=== PATIENT | male | born 1990 ===

== ENCOUNTER 2018-05-26 00:40 | Emergency (ER) | payer SELFPAY ==
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
[2018-05-26 03:50] VITALS: RESP 14
[2018-05-26 05:55] VITALS: BP 130/78; PULSE 81; TEMP 98.5
[2018-05-26 06:52] VITALS: O2SAT 100
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
== END 2018-05-26 06:12 | disposition home or self-care (01) ==
LOC: C.ER 00:40
DX: S01.112A Laceration without foreign body of left eyelid and periocular area, initial encounter (principal); S42.002A Fracture of unspecified part of left clavicle, initial encounter for closed fracture; V00.141A Fall from scooter (nonmotorized), initial encounter; Y92.89 Other specified places as the place of occurrence of the external cause